=== PATIENT | female | born 1965 | race Caucasian/White ===

== ENCOUNTER 2022-12-21 13:29 | Inpatient (IN) | payer MEDICAID ==
[~2022-12-21] VITALS: Ht 152.4 cm; Wt 172.4 kg
[2022-12-21] MEDS ORDERED: cefTRIAXone 1 GM IVPB PREMIX 50 ML IV ONE (14:30)
[2022-12-21] MEDS ORDERED: KETOROLAC TROMETHAMINE 30 MG VIAL IVP ONE (14:30)
[2022-12-21] MEDS ORDERED: DIPHENHYDRAMINE INJ 50 MG/ML VIAL IVP ONE (14:30)
[2022-12-21 15:05] LABS: BASOPHILS # (AUTO) 0.1 K/uL (0.0-0.2); BASOPHILS % (AUTO) 0.5 % (0.0-2.0); EOSINOPHILS # (AUTO) 0.2 K/uL (0.0-0.4); HEMATOCRIT 45.6 % (36-48); HEMOGLOBIN 14.5 g/dL (12.0-16.0); LYMPHOCYTES # (AUTO) 1.4 K/uL (1.0-5.5); LYMPHOCYTES % (AUTO) 11.7 % (20.5-51.5); MEAN CORPUSCULAR HEMOGLOBIN 27 pg (27-31); MEAN CORPUSCULAR HGB CONC 32 % (32-36); MEAN CORPUSCULAR VOLUME 84 fL (79.0-98.0); MONOCYTES # (AUTO) 0.5 K/uL (0.0-1.0); NEUTROPHILS # (AUTO) 9.5 K/uL (1.8-7.7); NEUTROPHILS % (AUTO) 81.8 % (40.0-70.0); PLATELET COUNT (AUTO) 337 K/uL (130-430); RED BLOOD CELL COUNT(AUTO) 5.42 MIL/uL (4.2-6.2); RED CELL DISTRIBUTION WIDTH 15.1 % (9.0-15.0); WHITE BLOOD COUNT (AUTO) 11.6 K/uL (4.8-10.8)
[2022-12-21 15:23] LABS: CALCIUM 9.1 mg/dL (8.4-11.0); CREATININE 0.68 mg/dL (0.55-1.30)
[2022-12-21 15:27] LABS: BILIRUBIN,URINE 1+ (NEGATIVE); BLOOD, URINE NEGATIVE (NEGATIVE); COLOR,URINE YELLOW (YELLOW); GLUCOSE,URINE NEGATIVE (NEGATIVE); KETONES,URINE TRACE (NEGATIVE); LEUKOCYTE ESTERASE ,URINE NEGATIVE (NEGATIVE); NITRITE, URINE NEGATIVE (NEGATIVE); PROTEIN URINE TRACE (NEGATIVE); TOTAL BILIRUBIN 0.4 mg/dL (0.0-1.0)
[2022-12-21 15:38] LABS: INR 0.9 (0.8-1.2); PROTHROMBIN TIME 9.6 SECS (9.5-12.5)
[2022-12-21 15:54] LABS: CLARITY/URINE SLIGHTLY HAZY (CLEAR)
[2022-12-21 16:13] LABS: BACTERIA,URINE FEW /HPF (None Seen); RBC,URINE 0-3 /HPF (0-3); WBC,URINE 0-3 /HPF (0-3)
[2022-12-21 16:14] LABS: MUCUS,URINE 1+ /LPF (None Seen)
[2022-12-21] MEDS ORDERED: methylPREDNISolone SOD SUCC/PF 62.5 MG/ML VIAL IVP ONE (19:15)
[2022-12-21] MEDS ORDERED: MORPHINE 4 MG INJ. 4 MG/ML VIAL IVP ONE (19:15)
[2022-12-22] VITALS (7 sets, daily range): BP systolic 115–138; PULSE 77–115; RESP 17–20; TEMP 96.8–98.4; O2SAT 95–100
[2022-12-22] MEDS ORDERED: DEXAMETHASONE SOD PHOSPHATE 4 MG/ML VIAL IVP ONE
[2022-12-22] MEDS ORDERED: FAMOTIDINE 20 MG TABLET PO ONE
[2022-12-22] MEDS: DECADRON 4 MG TABLET PO SCH ×2 (09:33→20:46)
[2022-12-22] MEDS: FAMOTIDINE 20 MG TABLET PO SCH ×2 (09:33→20:46)
[2022-12-22] MEDS ORDERED: DOXY100C5 PO (19:13)
[2022-12-22] MEDS ORDERED: DEC4 PO (19:14)
[2022-12-23] VITALS (7 sets, daily range): BP systolic 104–141; PULSE 70–77; RESP 16–20; TEMP 96.8–98; O2SAT 76–100
[2022-12-23 05:16] LABS: BASOPHILS # (AUTO) 0.1 K/uL (0.0-0.2); BASOPHILS % (AUTO) 0.4 % (0.0-2.0); HEMOGLOBIN 13.2 g/dL (12.0-16.0); LYMPHOCYTES % (AUTO) 6.6 % (20.5-51.5); MEAN CORPUSCULAR HEMOGLOBIN 27 pg (27-31); MEAN CORPUSCULAR HGB CONC 32 % (32-36); MEAN CORPUSCULAR VOLUME 84 fL (79.0-98.0); MONOCYTES # (AUTO) 0.5 K/uL (0.0-1.0); NEUTROPHILS # (AUTO) 13.7 K/uL (1.8-7.7); PLATELET COUNT (AUTO) 343 K/uL (130-430); RED BLOOD CELL COUNT(AUTO) 4.89 MIL/uL (4.2-6.2); RED CELL DISTRIBUTION WIDTH 14.7 % (9.0-15.0); WHITE BLOOD COUNT (AUTO) 15.2 K/uL (4.8-10.8)
[2022-12-23 05:53] LABS: CALCIUM 8.6 mg/dL (8.4-11.0); CREATININE 0.73 mg/dL (0.55-1.30)
[2022-12-23] MEDS: DECADRON 4 MG TABLET PO SCH (09:39)
[2022-12-23] MEDS: FAMOTIDINE 20 MG TABLET PO SCH (09:40)
[2022-12-23] MEDS ORDERED: DOXYCYCLINE HYCLATE 100 MG in D5W 100 ML IV ONE (11:30)
[2022-12-23] MEDS ORDERED: EPIN0.3P3 IM (14:28)
[2022-12-23] MEDS ORDERED: HYPR15DR24 BOTH EYES (14:30)
[2022-12-23] MEDS ORDERED: DOXYCYCLINE HYCLATE 100 MG in D5W 100 ML IV SCH (21:00)
== END 2022-12-23 15:25 | disposition home or self-care (01) | DRG 385 ==
LOC: SED 13:29 → SMU 21:29
PROVIDERS: ADMIT Internal Medicine; ATTEND Internal Medicine
DX: R21 Rash and other nonspecific skin eruption (principal); Z68.45 Body mass index [BMI] 70 or greater, adult; T36.8X5A Adverse effect of other systemic antibiotics, initial encounter; D72.819 Decreased white blood cell count, unspecified; E66.01 Morbid (severe) obesity due to excess calories; M79.7 Fibromyalgia; I77.6 Arteritis, unspecified; Z20.822 Contact with and (suspected) exposure to COVID-19; N39.0 Urinary tract infection, site not specified
CPT/HCPCS: 36415; 71045; 80048; 80053; 81000; 83605; 85025; 85610-TC; 85730-TC; 87040; 87086; 93005; 96365; 96375; 99285; J0696; J1100; J1200; J1885; J2270; J2930; J3490; J7050; J7060; J8540